=== PATIENT | female | born 1975 | race Caucasian/White ===

== ENCOUNTER 2017-03-26 13:49 | Outpatient (CLI) | payer OTHER ==
[2017-03-26 19:10] LABS: THYROID STIMULATING HORMONE 6.58 uIU/mL (0.34-5.60)
[2017-03-26 19:11] LABS: FREE T4 (FREE THYROXINE) 0.92 ng/dL (0.58-1.64)
[2017-03-26 19:15] LABS: TOTAL T3 1.19 ng/mL (0.87-1.78)
[2017-03-29 15:31] LABS: T3 REVERSE 17 ng/dL (8-25)
== END 2017-03-26 13:50 | disposition home or self-care (01) ==
LOC: LAB.F 13:49
PROVIDERS: ATTEND Family Medicine
DX: E03.9 Hypothyroidism, unspecified (principal); E55.9 Vitamin D deficiency, unspecified; R53.83 Other fatigue
CPT/HCPCS: 36415; 82306; 82626; 84439; 84443; 84480; 84481; 84482

== ENCOUNTER 2017-10-08 07:31 | Outpatient (CLI) | payer MEDICAID ==
[2017-10-08 11:58] LABS: BASOPHILS % (AUTO) 0.4 %; EOSINOPHILS # (AUTO) 0.2 10^3/uL (0.0-0.7); EOSINOPHILS % (AUTO) 2.7 %; LYMPHOCYTES # (AUTO) 2.3 10^3/uL (1.5-3.5); LYMPHOCYTES % (AUTO) 33.1 %; MEAN CORPUSCULAR HEMOGLOBIN 30.8 pg (27.0-31.0); MEAN CORPUSCULAR HGB CONC 33.3 g/dL (32.0-36.0); MEAN CORPUSCULAR VOLUME 92.7 fL (81.0-99.0); MEAN PLATELET VOLUME 8.4 fL (7.9-10.8); MONOCYTES # (AUTO) 0.5 10^3/uL (0.0-1.0); MONOCYTES % (AUTO) 6.6 %; NEUTROPHILS # (AUTO) 3.9 10^3/uL (1.5-6.6); NEUTROPHILS % (AUTO) 57.2 %; PLT - PLATELET COUNT 384 10^3/uL (130-450); RED BLOOD COUNT 4.53 10^6/uL (4.20-5.40); RED CELL DISTRIBUTION WIDTH 13.6 % (12.0-15.0); WHITE BLOOD COUNT 6.9 x10^3/uL (4.8-10.8)
[2017-10-08 12:09] LABS: ALBUMIN 4.2 g/dL (3.2-5.5); ALBUMIN/GLOBULIN RATIO 1.5 (1.0-2.2); ALKALINE PHOSPHATASE 49 IU/L (42-121); ALT ALANINE AMINOTRANSFERASE 25 IU/L (10-60); AST ASPARTATE AMINOTRANSFERASE 23 IU/L (10-42); BUN - BLOOD UREA NITROGEN 16 mg/dL (6-20); CALCIUM 8.9 mg/dL (8.5-10.3); CARBON DIOXIDE - CO2 25 mmol/L (21-32); CHLORIDE 104 mmol/L (101-111); CHOL/HDL RATIO 3.7 (<4.4); CHOLESTEROL 182 mg/dL; CREATININE 0.6 mg/dL (0.4-1.0); GFR - MDRD 110 (>89); GLUCOSE 100 mg/dL (70-100); HDL CHOLESTEROL 49 mg/dL; LDL CHOLESTEROL,CALCULATED 111 mg/dL; LDL/HDL RATIO 2.3 (<4.4); SODIUM 136 mmol/L (135-145); VLDL CHOLESTEROL 22 mg/dL
[2017-10-08 12:26] LABS: THYROID STIMULATING HORMONE 2.42 uIU/mL (0.34-5.60)
[2017-10-08 12:27] LABS: HB2 TOTAL 15.3 g/dL; HEMOGLOBIN A1C 0.58 g/dL; HEMOGLOBIN A1C % 5.6 % (4.6-6.2)
[2017-10-08 12:28] LABS: FREE T4 (FREE THYROXINE) 1.13 ng/dL (0.58-1.64)
[2017-10-08 12:32] LABS: TOTAL T3 1.03 ng/mL (0.87-1.78)
[2017-10-08 12:33] LABS: FERRITIN 30.8 ng/mL (11.0-306.8)
== END 2017-10-08 07:32 | disposition home or self-care (01) ==
LOC: LAB.F 07:31
PROVIDERS: ATTEND Family Medicine
DX: Z00.00 Encounter for general adult medical examination without abnormal findings (principal); R53.83 Other fatigue; E03.9 Hypothyroidism, unspecified; D64.9 Anemia, unspecified; R73.09 Other abnormal glucose; E55.9 Vitamin D deficiency, unspecified; E78.5 Hyperlipidemia, unspecified
CPT/HCPCS: 36415; 80053; 80061; 82306; 82728; 83036; 83721; 84439; 84443; 84480; 84481; 84482; 85025

== ENCOUNTER 2017-12-06 06:22 | Outpatient (CLI) | payer MEDICAID ==
[2017-12-06] MEDS ORDERED: IOPAMIDOL-300 50 ML VIAL ONE (06:45)
[2017-12-06] MEDS ORDERED: IOPAMIDOL-300 100 ML VIAL ONE (06:47)
[2017-12-06] MEDS ORDERED: IOPAMIDOL-300 50 ML VIAL PO ONE (11:25)
[2017-12-06] MEDS ORDERED: IOPAMIDOL-300 100 ML VIAL IVP ONE (11:25)
--- NOTE | 2017-12-06 17:37 | CT Report ---
Reason: UNEXPLANED DIARRHEA/ABD PAIN Procedure Date: 12/06/2017 Accession Number: [id number] / [id number] Procedure: CT - Abdomen/Pelvis W/ CPT Code: FULL RESULT: EXAM: CT ABDOMEN AND PELVIS EXAM DATE: 12/06/2017 08:37 AM. CLINICAL HISTORY: Unexplained diarrhea/abdominal pain. COMPARISONS: None. TECHNIQUE: Routine helical CT imaging was performed through the abdomen and pelvis. IV contrast: Isovue-300, 100 mL. Enteric contrast: No. Reconstructions: Coronal and sagittal. In accordance with CT protocol optimization, one or more of the following dose reduction techniques were utilized for this exam: automated exposure control, adjustment of mA and/or KV based on patient size, or use of iterative reconstructive technique. FINDINGS: Lung Bases: Unremarkable. Liver: Normal. No masses. Gallbladder/Bile Ducts: Unremarkable. Spleen: Normal. Pancreas: Normal. Adrenal Glands: Normal. Kidneys: Numerous areas of left renal scarring with cortical thinning and parenchymal calcification. No hydronephrosis. Generalized subjective prominence of right kidney compatible with compensatory renal hypertrophy. No suspicious right renal mass or hydronephrosis. Peritoneal Cavity/Bowel: Prominent left inguinal canal fat, question indirect inguinal hernia. No soft tissue stranding. No free fluid, free air or adenopathy. No masses or acute inflammatory process. The appendix is well visualized and normal. Pelvic Organs: Normal. The bladder and visualized pelvic organs are within normal limits. Vasculature: No aneurysms or other significant abnormality. Bones: Bilateral L5 pars defects. Other: None. IMPRESSION: 1. No acute inflammatory process. 2. Numerous areas of left renal scarring with cortical thinning and parenchymal calcification. No suspicious renal mass. No hydronephrosis. RADIA
== END 2017-12-06 06:23 | disposition home or self-care (01) ==
LOC: DI 06:22
PROVIDERS: ATTEND Surgery
DX: R10.9 Unspecified abdominal pain (principal); R19.7 Diarrhea, unspecified
CPT/HCPCS: 74177; Q9967

== ENCOUNTER 2018-04-02 08:27 | Outpatient (CLI) | payer MEDICAID, OTHER ==
[2018-04-02 11:52] LABS: THYROID STIMULATING HORMONE 2.48 uIU/mL (0.34-5.60)
[2018-04-02 11:55] LABS: FREE T4 (FREE THYROXINE) 1.09 ng/dL (0.58-1.64)
[2018-04-02 11:59] LABS: TOTAL T3 1.05 ng/mL (0.87-1.78)
== END 2018-04-02 23:59 | disposition home or self-care (01) ==
LOC: LAB.F 08:27
PROVIDERS: ATTEND Registered Nurse
DX: E03.1 Congenital hypothyroidism without goiter (principal)
CPT/HCPCS: 36415; 84439; 84443; 84480

== ENCOUNTER 2019-03-06 07:06 | Outpatient (CLI) | payer OTHER ==
[2019-03-06 10:15] LABS: BASOPHILS % (AUTO) 0.4 %; EOSINOPHILS # (AUTO) 0.2 10^3/uL (0.0-0.7); EOSINOPHILS % (AUTO) 2.9 %; HGB - HEMOGLOBIN 14.1 g/dL (12.0-16.0); LYMPHOCYTES # (AUTO) 2.1 10^3/uL (1.5-3.5); LYMPHOCYTES % (AUTO) 29.3 %; MEAN CORPUSCULAR HEMOGLOBIN 30.4 pg (27.0-31.0); MEAN CORPUSCULAR HGB CONC 33.1 g/dL (32.0-36.0); MEAN CORPUSCULAR VOLUME 91.8 fL (81.0-99.0); MONOCYTES # (AUTO) 0.5 10^3/uL (0.0-1.0); NEUTROPHILS # (AUTO) 4.4 10^3/uL (1.5-6.6); NEUTROPHILS % (AUTO) 60.1 %; PLT - PLATELET COUNT 386 10^3/uL (130-450); RED BLOOD COUNT 4.64 10^6/uL (4.20-5.40); RED CELL DISTRIBUTION WIDTH 12.8 % (12.0-15.0); WHITE BLOOD COUNT 7.3 x10^3/uL (4.8-10.8)
[2019-03-06 10:23] LABS: ALBUMIN/GLOBULIN RATIO 1.3 (1.0-2.2); ALKALINE PHOSPHATASE 53 IU/L (42-121); ALT ALANINE AMINOTRANSFERASE 33 IU/L (10-60); AST ASPARTATE AMINOTRANSFERASE 21 IU/L (10-42); BILIRUBIN,TOTAL 0.7 mg/dL (0.2-1.0); BUN - BLOOD UREA NITROGEN 15 mg/dL (6-20); CALCIUM 9.1 mg/dL (8.5-10.3); CARBON DIOXIDE - CO2 26 mmol/L (21-32); CHLORIDE 105 mmol/L (101-111); CHOL/HDL RATIO 3.8 (<4.4); CHOLESTEROL 208 mg/dL; CREATININE 0.6 mg/dL (0.4-1.0); GFR - MDRD 109 (>89); GLUCOSE 104 mg/dL (70-100); HDL CHOLESTEROL 55 mg/dL; LDL CHOLESTEROL,CALCULATED 135 mg/dL; LDL/HDL RATIO 2.5 (<4.4); SODIUM 138 mmol/L (135-145); TOTAL PROTEIN 7.1 g/dL (6.7-8.2); VLDL CHOLESTEROL 18 mg/dL
== END 2019-03-06 07:07 | disposition home or self-care (01) ==
LOC: LAB.S 07:06
PROVIDERS: ATTEND Registered Nurse
DX: E66.9 Obesity, unspecified (principal); R73.01 Impaired fasting glucose; E03.1 Congenital hypothyroidism without goiter; K52.9 Noninfective gastroenteritis and colitis, unspecified
CPT/HCPCS: 36415; 80053; 80061; 83721; 84443; 85025

== ENCOUNTER 2020-09-27 07:04 | Outpatient (CLI) | payer BC ==
[2020-09-27 16:23] LABS: BASOPHILS % (AUTO) 0.4 %; EOSINOPHILS # (AUTO) 0.2 10^3/uL (0.0-0.7); EOSINOPHILS % (AUTO) 2.5 %; HCT - HEMATOCRIT 42.6 % (37.0-47.0); HGB - HEMOGLOBIN 13.6 g/dL (12.0-16.0); LYMPHOCYTES % (AUTO) 29.7 %; MEAN CORPUSCULAR HEMOGLOBIN 31.3 pg (27.0-31.0); MEAN CORPUSCULAR HGB CONC 31.9 g/dL (32.0-36.0); MEAN CORPUSCULAR VOLUME 98.2 fL (81.0-99.0); MEAN PLATELET VOLUME 10.3 fL (7.9-10.8); MONOCYTES # (AUTO) 0.4 10^3/uL (0.0-1.0); MONOCYTES % (AUTO) 5.2 %; NEUTROPHILS # (AUTO) 4.2 10^3/uL (1.5-6.6); NEUTROPHILS % (AUTO) 62.1 %; PLT - PLATELET COUNT 377 10^3/uL (130-450); RED BLOOD COUNT 4.34 10^6/uL (4.20-5.40); WHITE BLOOD COUNT 6.8 x10^3/uL (4.8-10.8)
[2020-09-27 16:31] LABS: BILIRUBIN,URINE NEGATIVE (NEGATIVE); GLUCOSE, URINE (UA) NEGATIVE (NEGATIVE); KETONES,URINE (UA) NEGATIVE (NEGATIVE); LEUKOCYTE ESTERASE, URINE SMALL (NEGATIVE); NITRITE,URINE NEGATIVE (NEGATIVE); OCCULT BLOOD,URINE NEGATIVE (NEGATIVE); PROTEIN,URINE NEGATIVE (NEGATIVE); UROBILINOGEN,URINE 0.2 (NORMAL) E.U./dL (NORMAL)
[2020-09-27 16:42] LABS: CLARITY,URINE CLEAR (CLEAR)
[2020-09-27 16:45] LABS: ALBUMIN/GLOBULIN RATIO 1.4 (1.0-2.2); ALKALINE PHOSPHATASE 52 IU/L (42-121); ALT ALANINE AMINOTRANSFERASE 24 IU/L (10-60); AST ASPARTATE AMINOTRANSFERASE 20 IU/L (10-42); BILIRUBIN,TOTAL 0.7 mg/dL (0.2-1.0); BUN - BLOOD UREA NITROGEN 17 mg/dL (6-20); CALCIUM 8.7 mg/dL (8.5-10.3); CARBON DIOXIDE - CO2 27 mmol/L (21-32); CHLORIDE 105 mmol/L (101-111); CHOL/HDL RATIO 3.9 (<4.4); CHOLESTEROL 224 mg/dL; CREATININE 0.8 mg/dL (0.4-1.0); CRP HIGH SENSITIVITY 1.8 mg/L; GFR - MDRD 78 (>89); GLUCOSE 98 mg/dL (70-100); HDL CHOLESTEROL 57 mg/dL; LDL CHOLESTEROL,CALCULATED 152 mg/dL; LDL/HDL RATIO 2.7 (<4.4); POTASSIUM 3.8 mmol/L (3.5-5.0); SODIUM 137 mmol/L (135-145); TOTAL PROTEIN 6.8 g/dL (6.7-8.2); TRIGLYCERIDES 76 mg/dL; VLDL CHOLESTEROL 15 mg/dL
[2020-09-27 16:52] LABS: RBC,URINE 0-5 /HPF (0-5); SQUAMOUS EPITHELIAL CELL,UR MANY Squamous (<= Few)
[2020-09-27 16:53] LABS: BACTERIA,URINE Few /HPF (None Seen); FREE T3 2.45 pg/mL (2.5-3.9)
[2020-09-27 16:54] LABS: FREE T4 (FREE THYROXINE) 0.83 ng/dL (0.58-1.64); THYROID STIMULATING HORMONE 44.15 uIU/mL (0.34-5.60)
[2020-09-27 20:06] LABS: ESTIMATED AVERAGE GLUCOSE 108 mg/dL (70-100); HEMOGLOBIN A1c% 5.4 % (4.27-6.07)
== END 2020-09-27 07:05 | disposition home or self-care (01) ==
LOC: LAB.S 07:04
PROVIDERS: ATTEND Naturopath
DX: E03.9 Hypothyroidism, unspecified (principal); Z13.1 Encounter for screening for diabetes mellitus; Z13.21 Encounter for screening for nutritional disorder; Z13.220 Encounter for screening for lipoid disorders; Z13.29 Encounter for screening for other suspected endocrine disorder; Z13.6 Encounter for screening for cardiovascular disorders
CPT/HCPCS: 36415; 80053; 80061; 81001; 81003; 81599; 83036; 83520; 83721; 84439; 84443; 84481; 84482; 85025; 86141; 86376

== ENCOUNTER 2022-04-03 15:04 | Outpatient (CLI) | payer BC ==
--- NOTE | 2022-04-04 11:41 | XRAY Report ---
PROCEDURE: Knee 2 View RT INDICATIONS: Right knee pain TECHNIQUE: 2 views of the right knee(s) were acquired. COMPARISON: None. FINDINGS: Medial greater than lateral femorotibial compartment joint space narrowing. No acute or suspicious yumiko ne lesion. Soft tissues normal. IMPRESSION: Mild joint space narrowing. Reviewed by: Joseph Luna MD on 04/04/2022 11:39 AM PST Approved by: Joseph Luna MD on 04/04/2022 11:39 AM PST Station ID: [id number]
== END 2022-04-03 15:05 | disposition home or self-care (01) ==
LOC: DI.WOS 15:04
PROVIDERS: ATTEND Physician Assistant Surgical
DX: M25.561 Pain in right knee (principal)